=== PATIENT | male | born 1970 | race African-American/Black ===

== ENCOUNTER 2017-05-02 13:51 | Emergency (ER) | payer OTHER ==
[2017-05-02 14:29] LABS: ADD MAN DIFF? NO
[2017-05-02 14:31] LABS: BASO % 1 % (0-3); EOS # 0.1 x10^3/uL (0.0-0.7); EOS % 2 % (0-3); HEMATOCRIT 41.9 % (39.0-53.0); HEMOGLOBIN 14.4 g/dL (13.0-17.5); LYMPH # 1.4 x10^3/uL (1.0-4.8); LYMPH % 33 % (24-48); MEAN CORPUSCULAR HEMOGLOBIN 30 pg (25-35); MEAN CORPUSCULAR HGB CONC 34 g/dL (31-37); MEAN CORPUSCULAR VOLUME 86 fL (79-100); MONO # 0.3 x10^3/uL (0.0-1.1); MONO % 8 % (0-9); NEUT # 2.3 x10^3uL (1.8-7.7); NEUT % 55 % (31-73); PLATELET COUNT 236 x10^3/uL (140-400); RED BLOOD COUNT 4.89 x10^6/uL (4.30-5.70); RED CELL DISTRIBUTION WIDTH 13.1 % (11.5-14.5); WHITE BLOOD COUNT 4.1 x10^3/uL (4.0-11.0)
[2017-05-02 14:42] LABS: ANION GAP 7 (6-14); BLOOD UREA NITROGEN 15 mg/dL (8-26); BUN/CREATININE RATIO 11 (6-20); CALCIUM 8.9 mg/dL (8.5-10.1); CARBON DIOXIDE 29 mmol/L (21-32); CHLORIDE 105 mmol/L (98-107); CREATININE 1.4 mg/dL (0.7-1.3); GLUCOSE 107 mg/dL (70-99); POTASSIUM 3.8 mmol/L (3.5-5.1); SODIUM 141 mmol/L (136-145)
[2017-05-02 14:47] LABS: PARTIAL THROMBOPLASTIN TIME 22 SEC (24-38); PROTHROMBIN TIME PATIENT 12.7 SEC (11.7-14.0)
[2017-05-02 14:50] LABS: ALBUMIN 3.6 g/dL (3.4-5.0); ALK PHOS 73 U/L (46-116); ALT (SGPT) 31 U/L (16-63); AST (SGOT) 16 U/L (15-37); TOTAL BILIRUBIN 0.3 mg/dL (0.2-1.0); TOTAL PROTEIN 7.1 g/dL (6.4-8.2)
[2017-05-02 14:50] LABS: TROPONINI < 0.017 ng/mL (0.000-0.055)
[2017-05-02 14:53] LABS: NT-PRO BNP 9 pg/mL (0-124)
[2017-05-02] MEDS: MORPHINE SULFATE 4 MG/ML DISP.SYRIN. IV/SQ (15:02)
[2017-05-02] MEDS: ASPIRIN 325 MG TABLET PO (15:02)
[2017-05-02 17:11] LABS: TROPONINI < 0.017 ng/mL (0.000-0.055)
== END 2017-05-02 18:08 | disposition home or self-care (01) ==
LOC: ER 13:51
DX: R07.89 Other chest pain (principal); I10 Essential (primary) hypertension; J45.909 Unspecified asthma, uncomplicated; E78.00 Pure hypercholesterolemia, unspecified; F12.10 Cannabis abuse, uncomplicated; I25.2 Old myocardial infarction; Z88.0 Allergy status to penicillin
CPT/HCPCS: 36415; 71046; 80053; 83880; 84484; 85025; 85610; 85730; 93005; 96374; 99285-25; J2270

== ENCOUNTER 2017-08-13 03:08 | Emergency (ER) | payer OTHER ==
[2017-08-13 03:42] LABS: BILIRUBIN,URINE NEGATIVE (NEG); CLARITY,URINE CLOUDY; COLOR,URINE YELLOW; GLUCOSE,URINE NEGATIVE (NEG); NITRITE,URINE NEGATIVE (NEG); PH,URINE 7.5; PROTEIN,URINE NEGATIVE (NEG-TRACE); UROBILINOGEN,URINE 0.2 mg/dL (0.2 mg/dL)
[2017-08-13 03:58] LABS: BACTERIA,URINE 0 /HPF (0-FEW); RBC,URINE OCC /HPF (0-2); WBC,URINE OCC /HPF (0-4)
[2017-08-13 04:15] LABS: ADD MAN DIFF? NO
[2017-08-13] MEDS: MORPHINE SULFATE 4 MG/ML DISP.SYRIN. IV (04:18)
[2017-08-13] MEDS: IV NORMAL SALINE 1000ML BAG 1,000 ML IV (04:18)
[2017-08-13 04:19] LABS: BASO % 0 % (0-3); EOS # 0.1 x10^3/uL (0.0-0.7); EOS % 2 % (0-3); HEMATOCRIT 39.7 % (39.0-53.0); HEMOGLOBIN 13.8 g/dL (13.0-17.5); LYMPH # 1.8 x10^3/uL (1.0-4.8); LYMPH % 38 % (24-48); MEAN CORPUSCULAR HEMOGLOBIN 30 pg (25-35); MEAN CORPUSCULAR HGB CONC 35 g/dL (31-37); MEAN CORPUSCULAR VOLUME 86 fL (79-100); MONO # 0.4 x10^3/uL (0.0-1.1); MONO % 8 % (0-9); NEUT # 2.4 x10^3uL (1.8-7.7); NEUT % 51 % (31-73); PLATELET COUNT 230 x10^3/uL (140-400); RED CELL DISTRIBUTION WIDTH 13.5 % (11.5-14.5); WHITE BLOOD COUNT 4.6 x10^3/uL (4.0-11.0)
[2017-08-13 04:30] LABS: ANION GAP 8 (6-14); BLOOD UREA NITROGEN 17 mg/dL (8-26); CALCIUM 8.2 mg/dL (8.5-10.1); CARBON DIOXIDE 27 mmol/L (21-32); CHLORIDE 103 mmol/L (98-107); CREATININE 1.4 mg/dL (0.7-1.3); GLUCOSE 108 mg/dL (70-99); POTASSIUM 3.3 mmol/L (3.5-5.1); SODIUM 138 mmol/L (136-145)
[2017-08-13] MEDS: IOHEXOL 300 MG/ML 100ML VIAL. IV (04:51)
[2017-08-13] MEDS ORDERED: CONTRAST GIVEN. MC (05:00)
== END 2017-08-13 06:22 | disposition home or self-care (01) ==
LOC: ER 03:08
DX: R10.32 Left lower quadrant pain (principal); R31.9 Hematuria, unspecified; J45.909 Unspecified asthma, uncomplicated; E78.00 Pure hypercholesterolemia, unspecified; I10 Essential (primary) hypertension; I25.2 Old myocardial infarction; Z88.0 Allergy status to penicillin
CPT/HCPCS: 36415; 74177; 80048; 81001; 85025; 96374; 99284-25; 99285-25; J2270; J7030; Q9967

== ENCOUNTER 2017-09-15 06:28 | Emergency (ER) | payer OTHER ==
[2017-09-15 06:49] LABS: ADD MAN DIFF? NO
[2017-09-15 06:51] LABS: BASO % 1 % (0-3); EOS # 0.1 x10^3/uL (0.0-0.7); EOS % 2 % (0-3); HEMATOCRIT 41.5 % (39.0-53.0); HEMOGLOBIN 14.2 g/dL (13.0-17.5); LYMPH # 1.9 x10^3/uL (1.0-4.8); LYMPH % 39 % (24-48); MEAN CORPUSCULAR HEMOGLOBIN 30 pg (25-35); MEAN CORPUSCULAR HGB CONC 34 g/dL (31-37); MEAN CORPUSCULAR VOLUME 87 fL (79-100); MONO # 0.5 x10^3/uL (0.0-1.1); MONO % 11 % (0-9); NEUT # 2.2 x10^3uL (1.8-7.7); NEUT % 48 % (31-73); PLATELET COUNT 235 x10^3/uL (140-400); RED CELL DISTRIBUTION WIDTH 13.7 % (11.5-14.5); WHITE BLOOD COUNT 4.7 x10^3/uL (4.0-11.0)
[2017-09-15] MEDS: ASPIRIN ENTERIC COATED 325 MG TABLET.DR. PO (06:53)
[2017-09-15] MEDS: LIDO:MAALOX 1:1 20 ML SINGLE DOSE. SWSW (06:53)
[2017-09-15 07:03] LABS: ANION GAP 10 (6-14); BLOOD UREA NITROGEN 14 mg/dL (8-26); CALCIUM 8.9 mg/dL (8.5-10.1); CARBON DIOXIDE 27 mmol/L (21-32); CHLORIDE 104 mmol/L (98-107); CREATININE 1.4 mg/dL (0.7-1.3); GLUCOSE 108 mg/dL (70-99); POTASSIUM 4.1 mmol/L (3.5-5.1); SODIUM 141 mmol/L (136-145)
[2017-09-15 07:13] LABS: TROPONINI < 0.017 ng/mL (0.000-0.055)
[2017-09-15] MEDS: IV NORMAL SALINE 1000ML BAG 1,000 ML IV (07:51)
[2017-09-15] MEDS ORDERED: IV NORMAL SALINE 1000ML BAG 1,000 ML IV ×2 (08:00→08:30)
== END 2017-09-15 08:57 | disposition home or self-care (01) ==
LOC: ER 06:28
DX: R07.89 Other chest pain (principal); R00.2 Palpitations; K21.9 Gastro-esophageal reflux disease without esophagitis; J45.909 Unspecified asthma, uncomplicated; I10 Essential (primary) hypertension; E78.00 Pure hypercholesterolemia, unspecified; Z88.0 Allergy status to penicillin
CPT/HCPCS: 36415; 71045; 80048; 84484; 85025; 93005; 99285-25; J7030

== ENCOUNTER 2018-02-28 06:03 | Emergency (ER) | payer OTHER ==
[~2018-02-28] VITALS: Ht 172.7 cm; Wt 95.3 kg
[~2018-02-28 06:03] MED LIST: HYDR-3164 PO; IBUP-1060 PO
--- NOTE | 2018-02-28 06:20 | PHYS DOC ---
Past Medical History Past Medical History: Asthma, High Cholesterol, Hypertension Additional Past Medical Histor: MILD [place] Past Surgical History: Other Additional Past Surgical Histo: LIPOMA REMOVAL Alcohol Use: None Drug Use: None Adult General Chief Complaint Chief Complaint: ABDOMINAL PAIN HPI HPI Patient is a 47 year old male who presents with chest pain. Patient endorses a prior history of reflux. He states the symptoms feel similar to his reflux. He has been evaluated by his primary care doctor and is also scheduled to undergo stress testing in the next couple of weeks. Patient is treated with Carafate and some proton pump inhibitor medications at home. He woke this morning with onset of epigastric pain that he states radiates to his chest intermittently. He did not eat food prior to onset of symptoms. He has no shortness of breath. No radiation to the arm or jaw. No recent fever, chills, cough. Patient does not have known history of coronary artery disease but he does take medications for high cholesterol and high blood pressure. He has tobacco use. He does not have diabetes. Review of Systems Review of Systems Constitutional: Denies fever or chills Eyes: Denies change in visual acuity HENT: Denies nasal congestion or sore throat Respiratory: Denies cough or shortness of breath Cardiovascular: No additional information not addressed in HPI GI: Denies abdominal pain, nausea : Denies dysuria or hematuria Musculoskeletal: Denies back pain Integument: Denies rash or skin lesions Neurologic: Denies headache Endocrine: Denies polyuria All other systems were reviewed and found to be within normal limits, except as documented in this note. Current Medications Current Medications Current Medications Medications (Trade) Dose Ordered Sig/Luz Start Time Stop Time Status Last Admin Dose Admin Amlodipine Besylate (Norvasc) 10 mg 1X ONCE 02/28/18 07:00 02/28/18 07:01 DC 02/28/18 06:33 10 MG Famotidine (Pepcid Vial) 20 mg 1X ONCE 02/28/18 07:00 02/28/18 07:01 DC 02/28/18 06:30 20 MG Multi-Ingredient Mouthwash/Gargle (Gi Cocktail) 20 ml 1X ONCE 02/28/18 07:00 02/28/18 07:01 DC 02/28/18 06:30 20 ML Allergies Allergies Allergies Coded Allergies Type Severity Reaction Last Updated Verified Penicillins Allergy Intermediate rash 09/15/17 Yes Physical Exam Physical Exam Constitutional: Well developed, well nourished, no acute distress, non-toxic appearance HENT: Normocephalic, atraumatic, bilateral external ears normal, oropharynx moist Eyes: PERRLA, EOMI, conjunctiva normal Neck: Normal range of motion, no tenderness Cardiovascular:Heart rate regular rhythm, no murmur Lungs & Thorax: Bilateral breath sounds clear to auscultation Abdomen: Bowel sounds normal, soft, no tenderness Skin: Warm, dry, no erythema Extremities: No edema Neurologic: Alert and oriented X 3 Psychologic: Affect normal Current Patient Data Vital Signs Vital Signs Date Time Temp Pulse Resp B/P (MAP) Pulse Ox O2 Delivery O2 Flow Rate FiO2 02/28/18 10:04 65 18 145/95 (112) 98 Room Air 02/28/18 06:10 98.8 98.8 Lab Values Laboratory Tests Test 02/28/18 06:28 02/28/18 07:09 02/28/18 09:30 White Blood Count 3.9 x10^3/uL (4.0-11.0) L Red Blood Count 4.66 x10^6/uL (4.30-5.70) Hemoglobin 14.0 g/dL (13.0-17.5) Hematocrit 40.5 % (39.0-53.0) Mean Corpuscular Volume 87 fL (79-100) Mean Corpuscular Hemoglobin 30 pg (25-35) Mean Corpuscular Hemoglobin Concent 35 g/dL (31-37) Red Cell Distribution Width 13.1 % (11.5-14.5) Platelet Count 198 x10^3/uL (140-400) Neutrophils (%) (Auto) 53 % (31-73) Lymphocytes (%) (Auto) 34 % (24-48) Monocytes (%) (Auto) 9 % (0-9) Eosinophils (%) (Auto) 4 % (0-3) H Basophils (%) (Auto) 1 % (0-3) Neutrophils # (Auto) 2.0 x10^3uL (1.8-7.7) Lymphocytes # (Auto) 1.3 x10^3/uL (1.0-4.8) Monocytes # (Auto) 0.3 x10^3/uL (0.0-1.1) Eosinophils # (Auto) 0.1 x10^3/uL (0.0-0.7) Basophils # (Auto) 0.0 x10^3/uL (0.0-0.2) Sodium Level 141 mmol/L (136-145) Potassium Level 4.0 mmol/L (3.5-5.1) Chloride Level 105 mmol/L (98-107) Carbon Dioxide Level 28 mmol/L (21-32) Anion Gap 8 (6-14) Blood Urea Nitrogen 16 mg/dL (8-26) Creatinine 1.5 mg/dL (0.7-1.3) H Estimated GFR (Cockcroft-Gault) 60.7 Glucose Level 110 mg/dL (70-99) H Calcium Level 8.8 mg/dL (8.5-10.1) Troponin I Quantitative < 0.017 ng/mL (0.000-0.055) < 0.017 ng/mL (0.000-0.055) HD-Usq-M-Type Natriuretic Peptide 8 pg/mL (0-124) Urine Collection Type Unknown Urine Color Yellow Urine Clarity Clear Urine pH 6.5 Urine Specific [place] 1.020 Urine Protein Negative mg/dL (NEG-TRACE) Urine Glucose (UA) Negative mg/dL (NEG) Urine Ketones (Stick) Negative mg/dL (NEG) Urine Blood Negative (NEG) Urine Nitrite Negative (NEG) Urine Bilirubin Negative (NEG) Urine Urobilinogen Dipstick 0.2 mg/dL (0.2 mg/dL) Urine Leukocyte Esterase Negative (NEG) Urine RBC Occ /HPF (0-2) Urine WBC 1-4 /HPF (0-4) Urine Squamous Epithelial Cells Few /LPF Urine Bacteria Few /HPF (0-FEW) Urine Mucus Mod /LPF Laboratory Tests 02/28/18 06:28 Laboratory Tests 02/28/18 06:28 EKG EKG No STEMI Interpretation Time: 06:15 Radiology/Procedures Radiology/Procedures [] Course & Med Decision Making Course & Med Decision Making Pertinent Labs and Imaging studies reviewed. (See chart for details) 06:15: Patient is seen and examined. GI cocktail and Pepcid ordered. EKG is non-acute. HEART Score: History: 0 EC Age: 1 Risk Factors: 2 (tobacco, HTN, HLD, fam hx) Total Score: 3 07:40: Patient currently improved. BP trending downward. No acute findings on lab panel. Heart score 3. Plan is to do 3-hr delta trop in ER. Patient is agreeable. Patient was evaluated in the emergency department for some chest pain which she states felt very typical for his reflux symptoms. Heart score totaled 3. Patient felt improved after GI cocktail and IV Pepcid. Patient was observed in the emergency department for a 3 hour delta troponin which was not elevated. His EKG was nonacute also at the 3 hour interval. Patient was discharged to home. He already has cardiology follow-up pending. Patient also is referred to GI for evaluation of chronic GERD symptoms that are poorly controlled on PPI therapy. Patient is agreeable to the plan of care. All of his questions are answered. Dragon Disclaimer Dragon Disclaimer This electronic medical record was generated, in whole or in part, using a voice recognition dictation system. Departure Departure Disposition: 01 HOME, SELF-CARE Condition: GOOD Referrals: NGA PADILLA MD (PCP) COBY MACHADO DO Feb 28, 2018 06:20
[2018-02-28 06:39] LABS: BASO % 1 % (0-3); EOS # 0.1 x10^3/uL (0.0-0.7); EOS % 4 % (0-3); HEMATOCRIT 40.5 % (39.0-53.0); LYMPH # 1.3 x10^3/uL (1.0-4.8); LYMPH % 34 % (24-48); MEAN CORPUSCULAR HEMOGLOBIN 30 pg (25-35); MEAN CORPUSCULAR HGB CONC 35 g/dL (31-37); MEAN CORPUSCULAR VOLUME 87 fL (79-100); MONO # 0.3 x10^3/uL (0.0-1.1); MONO % 9 % (0-9); NEUT % 53 % (31-73); PLATELET COUNT 198 x10^3/uL (140-400); RED BLOOD COUNT 4.66 x10^6/uL (4.30-5.70); RED CELL DISTRIBUTION WIDTH 13.1 % (11.5-14.5); WHITE BLOOD COUNT 3.9 x10^3/uL (4.0-11.0)
[2018-02-28 06:50] LABS: CALCIUM 8.8 mg/dL (8.5-10.1); CREATININE 1.5 mg/dL (0.7-1.3); GFR 60.7
[2018-02-28] MEDS ORDERED: amLODIPine BESYLATE 5 MG TABLET PO ONE (07:00)
[2018-02-28] MEDS ORDERED: FAMOTIDINE 20 MG/2 ML VIAL IVP ONE (07:00)
[2018-02-28] MEDS ORDERED: LIDO:MAALOX 1:1 20 ML SINGLE DOSE. SWSW ONE (07:00)
[2018-02-28 07:21] LABS: BILIRUBIN,URINE NEGATIVE (NEG); CLARITY,URINE CLEAR; COLOR,URINE YELLOW; NITRITE,URINE NEGATIVE (NEG); PH,URINE 6.5; PROTEIN,URINE NEGATIVE (NEG-TRACE); UROBILINOGEN,URINE 0.2 mg/dL (0.2 mg/dL)
[2018-02-28 07:26] LABS: SQUAMOUS EPITHELIAL CELL,UR FEW /LPF
[2018-02-28 07:27] LABS: BACTERIA,URINE FEW /HPF (0-FEW); RBC,URINE OCC /HPF (0-2)
[2018-02-28 10:04] VITALS: BP 145/95
--- NOTE | 2018-02-28 12:02 | EKG ---
[facility] [address] [place] [address] Test Date: 2018-02-28 Test Time: 06:12:54 Pat Name: JOVANNY BROWNING Department: Room: Gender: Male Band Top Maker: : 1970 Requested By: COBY MACHADO Order Number: [id number] Reading MD: Mark Oh Measurements Intervals [place]nel[place] Rate: 80 P: 47 MS: 140 QRS: -22 QRSD: 102 T: 7 QT: 374 QTc: 435 Interpretive Statements SINUS RHYTHM LEFTWARD AXIS LEFT VENTRICULAR HYPERTROPHY Electronically Signed On 03-11-2018 14:50:28 WEATHER TEACHER by Mark Oh
--- NOTE | 2018-02-28 14:57 | EKG ---
[facility] [address] [place] [address] Test Date: 2018-02-28 Test Time: 10:00:17 Pat Name: JOVANNY BROWNING Department: Room: Gender: M Location Man: : 1970 Requested By: COBY MACHADO Order Number: [id number] Reading MD: Mark Oh Measurements Intervals [place] Rate: 59 P: 30 WI: 138 QRS: -21 QRSD: 100 T: -5 QT: 412 QTc: 408 Interpretive Statements SINUS RHYTHM LEFTWARD AXIS CONSIDER LEFT VENTRICULAR HYPERTROPHY T ABNORMALITY IN INFERIOR LEADS ABNORMAL ECG Electronically Signed On 03-11-2018 16:47:53 PULP PRESS TENDER by Mark Oh
== END 2018-02-28 10:38 | disposition home or self-care (01) ==
LOC: ER 06:03
DX: R07.89 Other chest pain (principal); E78.00 Pure hypercholesterolemia, unspecified; J45.909 Unspecified asthma, uncomplicated; I10 Essential (primary) hypertension; I25.2 Old myocardial infarction; K21.9 Gastro-esophageal reflux disease without esophagitis; Z72.0 Tobacco use; Z88.0 Allergy status to penicillin
CPT/HCPCS: 36415; 80048; 81001; 83880; 84484; 85025; 93005; 96374; 99284; J3490

== ENCOUNTER → 2018-04-03 | Outpatient (CLI) | payer OTHER ==
--- NOTE | 2018-04-03 14:43 | CARD ---
MR#: [id number] Date of Study: 04/03/2018 Ordering Physician: YOON ANDRE, Referring Physician: YOON ANDRE, Tech: Pamela Stevenson CS APPROVED REPORT INDICATION Chest Pain RISK FACTORS Hypertension Smoking Reason : Patient complained of pain PROCEDURE The patient underwent an Exercise Stress Test using the Jonatan Protocol. Blood pressure, heart rate, a nd EKG were monitored. An Echocardiogram was performed by swimming pool service technician in four stages in quad fashion. At peak stress four se lected images were obtained and placed side by side with resting images for comparison. STRESS ECHO FINDINGS The resting Echocardiogram showed normal left ventricular systolic contractility with an estimated Ej ection Fraction of about 60 %. The Resting Echocardiogram showed normal augmentation of myocardial wall segments using a 16 segment model. The Stress Echocardiogram showed normal augmentation of myocardial wall segments using a 16 segment m johan. The Stress Echocardiogram left ventricular systolic contractility has an estimated Ejection Fraction of about 75%. Test Type: Exercise Stress Nurse/Tech: Lili Adan R.N. Test Indications: c/p Cardiac History and Allergies: See EHR Medications: See EHR Medical History: see EHR Resting ECG: SR Resting Heart Rate: 65 bpm Resting Blood Pressure: 158/80mmHg Pretest Chest Pain: No chest pain Nurse/Tech Notes S1S2, lungs CTA Stress Symptoms chest pain left side scale 4/10 which resolved by end of recovery period, fatigue POST EXERCISE Reason for Termination: Reached target heart rate Target HR: Yes Max HR: 156 bpm 90% of Maximum Predicted HR: 173 bpm Exercise duration: 9:03 min:sec, 3 Stage Exercise capacity: 10.1METs Max Blood Pressure: 210/102mmHg Blood Pressure response to exercise: Normal blood pressure response during stress. Heart Rate response to exercise: wnl Chest Pain: Yes. see above note Arrhythmia: No. ST Change: No. INTERPRETATION Stress EKG Conclusion: Baseline EKG showed sinus rhythm. No ischemic changes at peak stress. No arr hythmias. Preliminary Notification Critical Value: No <Conclusion> Treadmill exercise stress echocardiogram did not show any evidence of ischemia or infarct. Normal left ventricle systolic function with ejection fraction estimated at 60%. Patient had good activity tolerance. Low risk for cardiac events. Signed by : Mark Oh, Electronically Approved : 04/03/2018 14:43:06
== END | disposition home or self-care (01) ==
LOC: ECHO 12:17
PROVIDERS: ATTEND Internal Medicine Cardiovascular Disease
DX: R07.9 Chest pain, unspecified (principal); R53.83 Other fatigue; I10 Essential (primary) hypertension; F17.210 Nicotine dependence, cigarettes, uncomplicated
CPT/HCPCS: 93017; 93350

== ENCOUNTER → 2018-07-20 | Outpatient (CLI) | payer OTHER ==
--- NOTE | 2018-07-20 17:39 | KCIC ---
CHEST PA LATERAL History: Chronic smoker, quit 1 month ago. Night sweats for 2 months. FINDINGS: There are low lung volumes. Cardiac silhouette is stable and not thought to be enlarged. No evidence of pneumothorax. No evidence of pleural effusion. No solid infiltrate. Bones appear intact. Thoracic scoliosis again seen. IMPRESSION: Low lung volumes, but no evidence of consolidating infiltrate. Electronically signed by: Chencho Oreilly MD (07/20/2018 5:36 PM) [facility]-KC[facility]
== END | disposition home or self-care (01) ==
LOC: KCIC 15:54
PROVIDERS: ATTEND Family Medicine
DX: M41.84 Other forms of scoliosis, thoracic region (principal); Z87.891 Personal history of nicotine dependence
CPT/HCPCS: 71046

== ENCOUNTER 2019-05-01 04:18 | Emergency (ER) | payer OTHER ==
[~2019-05-01] VITALS: Ht 172.7 cm; Wt 100.0 kg
[2019-05-01 05:10] VITALS: BP 170/92
--- NOTE | 2019-05-01 05:22 | PHYS DOC ---
Past Medical History Past Medical History: Asthma, GERD, High Cholesterol, Hypertension Additional Past Medical Histor: MILD [place] Past Surgical History: Other Additional Past Surgical Histo: LIPOMA REMOVAL Smoking Status: Current Every Day Smoker Alcohol Use: None Drug Use: None Adult General Chief Complaint Chief Complaint: SEXUALLY TRANSMITTED DISEASE HPI HPI 48-year-old male presents the emergency department complaints of skin irritation to his penis. Patient states he noticed a couple days ago a white dot on the s haft of his penis however that has subsequently resolved. He now has some itching. Patient states he was concerned he may have inflammation or infection or possible bite. Patient denies any fever recent sexual contact, denies any discharge. Nothing makes his symptoms worse, nothing makes his symptoms better. Patient denies any abdominal pain, nausea, vomiting, fever, discharge Review of Systems Review of Systems Constitutional: Denies fever or chills [] Cardiovascular: No additional information not addressed in HPI [] GI: Denies abdominal pain, nausea, vomiting, bloody stools or diarrhea [] Integument: skin irritation appreciated to shaft of penis Neurologic: Denies headache, focal weakness or sensory changes [] All other systems were reviewed and found to be within normal limits, except as documented in this note. Allergies Allergies Allergies Coded Allergies Type Severity Reaction Last Updated Verified Penicillins Allergy Intermediate rash 09/15/17 Yes Physical Exam Physical Exam Constitutional: Well developed, well nourished, no acute distress, non-toxic appearance. [] HENT: Normocephalic, atraumatic, bilateral external ears normal, oropharynx moist, no oral exudates, nose normal. [] Skin: Warm, dry, erythema appreciated to shaft of penis - no active vesicular lesion appreciated, no drainage Extremities: No tenderness, no edema. [] EKG EKG [] Radiology/Procedures Radiology/Procedures [] Course & Med Decision Making Course & Med Decision Making Pertinent Labs and Imaging studies reviewed. (See chart for details) []48-year-old male presents the emergency department complaints of skin irritati on to his penis. Patient states he noticed a couple days ago a white dot on the shaft of his penis however that has subsequently resolved. He now has some itching. Patient states he was concerned he may have inflammation or infection or possible bite. Patient denies any fever recent sexual contact, denies any discharge. Nothing makes his symptoms worse, nothing makes his symptoms better. Patient denies any abdominal pain, nausea, vomiting, fever, discharge Dragon Disclaimer Dragon Disclaimer This electronic medical record was generated, in whole or in part, using a voice recognition dictation system. Departure Departure Impression: Primary Impression: Skin irritation Disposition: HOME, SELF-CARE Condition: STABLE Referrals: DIANA ARREGUIN MD (PCP) Patient Instructions: Itching-Brief Additional Instructions: No evidence of STD/STI No cellulitis/infection appreciated Benadryl over the counter Vaseline can be used as a barrier cream BEATRIZ MAYNARD MD May 01, 2019 05:22
== END 2019-05-01 05:40 | disposition home or self-care (01) ==
LOC: ER 04:18
DX: N48.89 Other specified disorders of penis (principal); L29.8 Other pruritus; J45.909 Unspecified asthma, uncomplicated; K21.9 Gastro-esophageal reflux disease without esophagitis; I10 Essential (primary) hypertension; E78.00 Pure hypercholesterolemia, unspecified; I25.2 Old myocardial infarction; F17.200 Nicotine dependence, unspecified, uncomplicated; Z88.0 Allergy status to penicillin
CPT/HCPCS: 99281

== ENCOUNTER → 2019-08-17 | Outpatient (CLI) | payer OTHER ==
[~2019-08-17] MED LIST changes: +AMLO10TA8 PO; +ATOR80TA72 PO; +IOHEXOL 240 MG/ML 50ML VIAL. PO ONE; +IOHEXOL 300 MG/ML 100ML VIAL. IV ONE; +PANT20TA2 PO
--- NOTE | 2019-08-17 14:27 | KCIC ---
CT scan of the abdomen and pelvis with contrast 08/17/2019 CLINICAL HISTORY: Abdominal fullness without epigastric pain. TECHNIQUE: After the oral and intravenous administration of contrast, contiguous, 5 mm axial sections were obtained through the abdomen and pelvis. 100 cc of Omnipaque 300 were administered intravenously during this examination. One or more of the following individualized dose reduction techniques were utilized for this study: 1. Automated exposure control. 2. Adjustment of the mA and/or kV according to patient size. 3. Use of iterative reconstruction technique. FINDINGS: Comparison study is dated 08/13/2017. Images through the lung bases are within normal limits. The liver parenchyma has a decreased attenuation consistent with fatty infiltration. The spleen, pancreas, adrenal glands and kidneys are within normal limits. Atherosclerotic calcification of the abdominal aorta is seen. The abdominal aorta tapers normally. The gallbladder is slightly contracted. No free fluid or free air is seen within the abdomen. Air and stool are seen throughout the colon. The appendix is well-visualized and is within normal limits. Images through the pelvis demonstrate the urinary bladder distended with urine. Scattered diverticula are seen involving the sigmoid colon. No inflammatory changes are seen in the adjacent fat. No free fluid is noted. A small fat-containing left inguinal hernia is seen. The hernia sac measures 3.6 cm in size. Very mild S-shaped curvature of the thoracolumbar spine is seen. Degenerative changes are seen involving the lower thoracic and throughout the lumbar spine along with both hips. IMPRESSION: No acute abnormality is seen. Electronically signed by: Reji Hall MD (08/17/2019 2:24 PM) [id number]
== END ==
LOC: KCIC CT 08:13
PROVIDERS: ATTEND Surgery
DX: K40.90 Unilateral inguinal hernia, without obstruction or gangrene, not specified as recurrent (principal); K57.30 Diverticulosis of large intestine without perforation or abscess without bleeding; I70.0 Atherosclerosis of aorta; K82.0 Obstruction of gallbladder
CPT/HCPCS: 74177; Q9966; Q9967

== ENCOUNTER → 2019-09-20 | Outpatient (CLI) | payer OTHER ==
[~2019-09-20] MED LIST changes: -AMLO10TA8 PO; -ATOR80TA72 PO; -IOHEXOL 240 MG/ML 50ML VIAL. PO ONE; -IOHEXOL 300 MG/ML 100ML VIAL. IV ONE; -PANT20TA2 PO
== END | disposition home or self-care (01) ==
LOC: LAB 13:18
PROVIDERS: ATTEND Surgery
DX: Z01.818 Encounter for other preprocedural examination (principal); Z11.59 Encounter for screening for other viral diseases; R10.13 Epigastric pain; Z88.0 Allergy status to penicillin
CPT/HCPCS: U0003-CS

== ENCOUNTER → 2019-09-24 | Day surgery (SDC) | payer OTHER ==
[~2019-09-24] MED LIST changes: +AMLO10TA8 PO; +ATOR80TA72 PO; +IV RINGERS,LACTATED 1000ML 1,000 ML IV SCH; +LIDOCAINE 2% PF 5 ML VIAL. ONE; +PANT20TA2 PO; +PROPOFOL 10 MG/ML (20ML) VIAL. IV ONE
[2019-09-24 13:16] VITALS: BP 141/99
--- NOTE | 2019-09-27 16:06 | PATHOLOGY ---
[facility] Accession Number: [id number] . 01 Material submitted: . stomach - ANTRUM BIOPSY . 01 Clinical history: . Epigastric pain. . 02 Diagnosis: Gastric biopsy, antrum: - Active chronic gastritis, moderate to marked, with Helicobacter organisms identified. (JPM:joel; 09/27/2019) S 09/27/2019 0941 Local . 02 Comment: Sections of the gastric antral biopy show congestion and moderate to marked active chronic inflammation. A properly controlled immunoperoxidase stain for Helicobacter reveals numerous Helicobacter organisms. There is no evidence of malignancy. (JPM:joel; 09/27/2019) . 02 Electronically signed: . Kvng Reza MD, Pathologist NPI- [id number] . 01 Gross description: . Received in formalin labeled "Leo, Gil, antrum BX" is a 0.6 x 0.4 x 0.1 cm fragment of robles-brown soft tissue. The specimen is submitted entirely in A1. ([facility] [place] 09/26/2019) [facility] 09/27/2019 0939 Local . 02 Pathologist provided ICD-10: K29.50 . 02 CPT . 408848, [id number] Specimen Comment: A courtesy copy of this report has been sent to [phone], [phone] Specimen Comment: 1910 Specimen Comment: Report sent to / DR ARREGUIN Performed at: 01 [facility] [address], [place] [id number] MD Zeus Whyte MD Phone: [phone] Performed at: 02 [facility] [address], [place] [id number] MD Kvng Reza MD Phone: [phone]
--- NOTE | 2019-09-30 09:01 | PDOC1 ---
History and Physical Date of Admission Date of Admission DATE: 09/24/19 TIME: 08:58 Identification/Chief Complaint Chief Complaint Epigastric pain Source Source: Patient History of Present Illness History of Present Illness 48-year-old male with epigastric pain here for endoscopy Past Medical History Cardiovascular: No pertinent hx Pulmonary: No pertinent hx GI: No pertinent hx Heme/Onc: No pertinent hx Psych: No pertinent hx Rheumatologic: No pertinent hx Infectious disease: No pertinent hx ENT: No pertinent hx Renal/: No pertinent hx Past Surgical History Past Surgical History: No pertinent history Family History Family History: No Significant Social History Smoke: No ALCOHOL: none Drugs: None Current Medications Current Medications Current Medications Ringer's Solution 1,000 ml @ 50 mls/hr Q20H IV Last administered on 09/24/19at 12:23; Start 09/24/19 at 07:00; Stop 09/24/19 at 18:59; Status DC Propofol (Diprivan) 200 mg STK-MED ONCE IV ; Start 09/24/19 at 12:42; Stop 09/24/19 at 12:43; Status DC Lidocaine HCl (Lidocaine Pf 2% Vial) 5 ml STK-MED ONCE .ROUTE ; Start 09/24/19 at 12:42; Stop 09/24/19 at 12:43; Status DC Active Scripts Active Reported Atorvastatin Calcium 80 Mg Tablet 10 Mg PO DAILY Protonix (Pantoprazole Sodium) 20 Mg Tablet.dr 40 Mg PO DAILY Amlodipine Besylate 10 Mg Tablet 10 Mg PO DAILY Allergies Allergies: Coded Allergies: Penicillins (Verified Allergy, Intermediate, rash, 09/24/19) ROS Gastrointestinal: Yes Abdominal Pain Physical Exam General: Alert, Oriented X3, Cooperative, No acute distress HEENT: Atraumatic, EOMI Lungs: Clear to auscultation, Normal air movement Heart: RRR, no murmurs Abdomen: Normal bowel sounds, Soft, Other (Tender to palpation epigastrium) Rectal Exam: not examined Extremities: No edema Skin: No significant lesion Vitals Vitals Vital Signs Date Time Temp Pulse Resp B/P (MAP) Pulse Ox O2 Delivery O2 Flow Rate FiO2 09/24/19 13:16 72 20 141/99 99 Room Air 09/24/19 12:58 97.8 3 97.8 VTE Prophylaxis Ordered VTE Prophylaxis Devices: No VTE Pharmacological Prophylaxi: No Assessment/Plan Assessment/Plan Epigastric pain plan EGD Justicifation of Admission Dx: Justifications for Admission: Justification of Admission Dx: N/A SARAI OROURKE MD Sep 30, 2019 09:01
== END | disposition home or self-care (01) ==
LOC: ENDOS 11:30
PROVIDERS: ATTEND Surgery
DX: R10.13 Epigastric pain (principal); K29.50 Unspecified chronic gastritis without bleeding; B96.81 Helicobacter pylori [H. pylori] as the cause of diseases classified elsewhere; I10 Essential (primary) hypertension; F17.210 Nicotine dependence, cigarettes, uncomplicated; K21.9 Gastro-esophageal reflux disease without esophagitis; Z79.899 Other long term (current) drug therapy; Z98.890 Other specified postprocedural states; Z88.0 Allergy status to penicillin
CPT/HCPCS: 43239; 88305; 88342; J2704

== ENCOUNTER 2020-09-22 08:55 | Emergency (ER) | payer OTHER ==
[~2020-09-22] VITALS: Ht 170.2 cm; Wt 95.0 kg
[~2020-09-22 08:55] MED LIST changes: +AMLO-187 PO; -AMLO10TA8 PO; -IV RINGERS,LACTATED 1000ML 1,000 ML IV SCH; -LIDOCAINE 2% PF 5 ML VIAL. ONE; -PROPOFOL 10 MG/ML (20ML) VIAL. IV ONE
[2020-09-22 09:10] VITALS: BP 153/97
[2020-09-22] MEDS ORDERED: MECLIZINE HCL 12.5 MG TABLET. PO ONE (10:00)
--- NOTE | 2020-09-22 11:35 | PHYS DOC ---
Past Medical History Past Medical History: Asthma, GERD, High Cholesterol, Hypertension Additional Past Medical Histor: "MILD AL" Past Surgical History: Other Additional Past Surgical Histo: LIPOMA REMOVAL Smoking Status: Current Every Day Smoker Additional Information: "I'm trying to stop." Alcohol Use: Occasionally Drug Use: None General Adult EDM: Chief Complaint: DIZZY/LIGHT HEADED HPI: HPI: Patient is a 49 year old male who presents with vertigo sensation starting this morning upon waking up. It goes away when he lays still or does not move his head. Gets worse when he moves his head. Will slowly settle out once he stops moving. He has never had similar symptoms in the past. He has had some fullness in his right ear. No speech difficulty, vision changes, weakness, numbness. Review of Systems: Review of Systems: Constitutional: Denies fever or chills. [] Eyes: Denies change in visual acuity. [] HENT: Denies nasal congestion or sore throat. [] Respiratory: Denies cough or shortness of breath. [] Cardiovascular: Denies chest pain or edema. [] GI: Denies abdominal pain, nausea, vomiting, bloody stools or diarrhea. [] : Denies dysuria. [] Musculoskeletal: Denies back pain or joint pain. [] Integument: Denies rash. [] Neurologic: + Vertigo. Denies headache, focal weakness or sensory changes. [] Endocrine: Denies polyuria or polydipsia. [] Lymphatic: Denies swollen glands. [] Psychiatric: Denies depression or anxiety. [] Heart Score: C/O Chest Pain: N/A Risk Factors: Risk Factors: DM, Current or recent (<one month) smoker, HTN, HLP, family history of CAD, obesity. Risk Scores: Score 0 - 3: 2.5% MACE over next 6 weeks - Discharge Home Score 4 - 6: 20.3% MACE over next 6 weeks - Admit for Clinical Observation Score 7 - 10: 72.7% MACE over next 6 weeks - Early Invasive Strategies Family History: Family History: No pertinent family history Current Medications: Current Medications Medications (Trade) Dose Ordered Sig/Luz Start Time Stop Time Status Last Admin Dose Admin Meclizine HCl (Antivert) 25 mg 1X ONCE 09/22/20 10:00 09/22/20 10:01 DC 09/22/20 10:25 25 MG Allergies: Allergies: Allergies Coded Allergies Type Severity Reaction Last Updated Verified Penicillins Allergy Intermediate rash 09/24/19 Yes Physical Exam: PE: Constitutional: Well developed, well nourished, no acute distress, non-toxic appearance. [] HENT: Normocephalic, atraumatic, bilateral external ears normal, oropharynx moist, no oral exudates, nose normal. [] Eyes: PERRLA, EOMI, conjunctiva normal, no discharge. [] Neck: Normal range of motion, no tenderness, supple, no stridor. [] Cardiovascular:Heart rate regular rhythm, no murmur [] Lungs & Thorax: Bilateral breath sounds clear to auscultation [] Abdomen: Bowel sounds normal, soft, no tenderness, no masses, no pulsatile masses. [] Skin: Warm, dry, no erythema, no rash. [] Back: No tenderness, no CVA tenderness. [] Extremities: No tenderness, no cyanosis, no clubbing, ROM intact, no edema. [] Neurologic: Alert, oriented. Speech normal. Face symmetric. Cranial nerves intact. 5/5 strength in bilateral upper and lower extremities. No dysmetria in the upper or lower extremities. Nystagmus with leftward gaze. Corrective saccade only present with a leftward head impulse testing. He demonstrated a normal test of skew. [] Psychologic: Affect normal, judgement normal, mood normal. [] Current Patient Data: Vital Signs: Vital Signs Date Time Temp Pulse Resp B/P (MAP) Pulse Ox O2 Delivery O2 Flow Rate FiO2 09/22/20 09:10 98.7 68 12 153/97 (113) 98 Room Air 98.7 EKG: EKG: Sinus rhythm. Rate 53. Left axis deviation. No acute ischemic changes. [] Radiology/Procedures: Radiology/Procedures: [] Course & Med Decision Making: Course & Med Decision Making Pertinent Labs and Imaging studies reviewed. (See chart for details) Patient a 49-year-old male who presents with positional vertigo. History and exam are consistent with peripheral vertigo, specifically BPPV. Positive [place]- Hallpike. Attempted Adilene with some mild relief. Also improved with Antivert. Will be safe for discharge with PCP follow-up. Short course of meclizine provided Dragon Disclaimer: Dragon Disclaimer: This electronic medical record was generated, in whole or in part, using a voice recognition dictation system. Departure Departure Impression: Primary Impression: BPPV (benign paroxysmal positional vertigo) Disposition: HOME / SELF CARE / HOMELESS Condition: STABLE Referrals: DIANA ARREGUIN MD (PCP) Patient Instructions: Benign Positional Vertigo Additional Instructions: I think your dizziness is caused by I have Crystal being out of place in your middle ear. You can google Adilene maneuver to get instructions for trying to reverse this if you have continued symptoms at home. Please follow-up with your primary care doctor. If this becomes persistent you can attempt to follow up with an ENT office. You may need a referral. [email or web address] [address], [place] [address] Scripts Meclizine Hcl (MECLIZINE HCL) 25 Mg Tablet 1 TAB PO Q6HRS for dizziness, #20 TAB Prov: BRIANNA VILLEGAS MD 09/22/20 BRIANNA VILLEGAS MD Sep 22, 2020 11:35
[2020-09-22] MEDS ORDERED: MECL-75 PO (15:31)
--- NOTE | 2020-09-23 02:13 | EKG ---
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
--- NOTE | 2020-10-04 11:09 | EKG ---
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
== END 2020-09-22 11:50 | disposition home or self-care (01) ==
LOC: ER 08:55
DX: H81.11 Benign paroxysmal vertigo, right ear (principal); K21.9 Gastro-esophageal reflux disease without esophagitis; E78.00 Pure hypercholesterolemia, unspecified; J45.909 Unspecified asthma, uncomplicated; I10 Essential (primary) hypertension; F17.200 Nicotine dependence, unspecified, uncomplicated; Z88.0 Allergy status to penicillin
CPT/HCPCS: 93005; 99283; J8597

== ENCOUNTER → 2021-02-26 | Outpatient (CLI) | payer OTHER ==
[~2021-02-26] MED LIST changes: +MECL-75 PO
--- NOTE | 2021-02-27 08:44 | RAD ---
XR HAND_RIGHT 3 VIEWS History: Right hand pain Comparison: None. Technique: 3 views of the right hand. Findings: Osseous mineralization is normal. No acute fracture or dislocaton. Mild degenerative changes at the m etacarpophalangeal and interphalangeal joints with small osteophytes. No aggressive osseous erosive p rocess. Soft tissues are unremarkable. Impression: 1. Degenerative changes of the right hand without acute osseous abnormality. Electronically signed by: Jose Cheung MD (02/27/2021 8:41 AM) [id number]
== END ==
LOC: RAD 09:58
PROVIDERS: ATTEND Family Medicine
DX: M19.041 Primary osteoarthritis, right hand (principal); M25.741 Osteophyte, right hand
CPT/HCPCS: 73130

== ENCOUNTER 2021-05-24 10:11 | Emergency (ER) | payer OTHER ==
[~2021-05-24] VITALS: Ht 175.3 cm; Wt 102.8 kg
[2021-05-24] MEDS ORDERED: FAMOTIDINE 20 MG/2 ML VIAL IVP ONE (10:45)
[2021-05-24] MEDS ORDERED: MORPHINE SULFATE 2 MG/ML INJ. IVP ONE (10:45)
[2021-05-24] MEDS ORDERED: KETOROLAC 30 MG/ML VIAL. IVP ONE (10:45)
[2021-05-24 10:55] LABS: BASO % 1 % (0-3); EOS # 0.3 x10^3/uL (0.0-0.7); EOS % 5 % (0-3); HEMATOCRIT 39.7 % (39.0-53.0); HEMOGLOBIN 13.7 g/dL (13.0-17.5); LYMPH # 1.5 x10^3/uL (1.0-4.8); LYMPH % 28 % (24-48); MEAN CORPUSCULAR HEMOGLOBIN 29 pg (25-35); MEAN CORPUSCULAR HGB CONC 35 g/dL (31-37); MEAN CORPUSCULAR VOLUME 85 fL (79-100); MONO # 0.5 x10^3/uL (0.0-1.1); MONO % 9 % (0-9); NEUT # 3.2 x10^3/uL (1.8-7.7); NEUT % 58 % (31-73); PLATELET COUNT 269 x10^3/uL (140-400); RED BLOOD COUNT 4.66 x10^6/uL (4.30-5.70); RED CELL DISTRIBUTION WIDTH 13.6 % (11.5-14.5); WHITE BLOOD COUNT 5.5 x10^3/uL (4.0-11.0)
[2021-05-24 10:59] LABS: CALCIUM 9.1 mg/dL (8.5-10.1); CREATININE 1.5 mg/dL (0.7-1.3); GFR 59.9; POTASSIUM 3.8 mmol/L (3.5-5.1)
[2021-05-24 11:01] LABS: ALBUMIN 3.9 g/dL (3.4-5.0); ALBUMIN/GLOBULIN RATIO 1.1 (1.0-1.7); TOTAL BILIRUBIN 0.3 mg/dL (0.2-1.0); TOTAL PROTEIN 7.5 g/dL (6.4-8.2)
[2021-05-24] MEDS ORDERED: CONTRAST GIVEN. MC PRN (11:15)
[2021-05-24] MEDS ORDERED: IOHEXOL 300 MG/ML 100ML VIAL. IV ONE (11:15)
--- NOTE | 2021-05-24 11:44 | RAD ---
CT ABDOMEN+PELVIS W History: Abdominal pain, distention. Comparison: CT abdomen and pelvis 08/17/2019 Technique: CT abdomen and pelvis with intravenous contrast. Findings: The lung bases are clear. The liver, gallbladder, pancreas, spleen, adrenal glands, and kidneys are u nremarkable. The stomach and small bowel are unremarkable. Normal appendix. There is moderate sigmoid diverticulos is. No pericolonic inflammatory changes to suggest diverticulitis. The bladder and prostate are unremarkable. No free air or fluid. No abdominal pelvic adenopathy. Vasc ular structures are unremarkable. Fat contained within the bilateral inguinal canals. Degenerative ch anges of the lumbar spine with lower lumbar predominant disc and facet disease. Impression: 1. No acute findings in the abdomen and pelvis. 2. Sigmoid diverticulosis without evidence of diverticulitis. ------ Exposure: One or more of the following individualized dose reduction techniques were utilized for thi s examination: 1. Automated exposure control 2. Adjustment of the mA and/or kV according to patient size 3. Use of iterative reconstruction technique. Electronically signed by: Jose Cheung MD (05/24/2021 11:41 AM) [id number]
--- NOTE | 2021-05-24 11:59 | EKG ---
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
[2021-05-24] MEDS ORDERED: MULTIVIT INFUSN,ADULT 4,VIT K 10 ML, THIAMINE INJ 100 MG, FOLIC ACID INJ 1 MG in IV NOR... IV ONE (12:00)
--- NOTE | 2021-05-24 14:04 | PHYS DOC ---
Past Medical History Past Medical History: Asthma, GERD, High Cholesterol, Hypertension Additional Past Medical Histor: "MILD NH" Past Surgical History: Other Additional Past Surgical Histo: LIPOMA REMOVAL Smoking Status: Current Every Day Smoker Additional Information: 0.25 PPD Alcohol Use: Occasionally Drug Use: None General Adult EDM: Chief Complaint: ABDOMINAL PAIN HPI: HPI: Patient is a 50 year old male presents to the ER with epigastric pain. Patient has a history of gastritis and acid reflux. Patient states that pain started after he ate he had breakfast sausages this morning. States he usually lives healthy diet due to the fact that it he has multiple exacerbations of gastritis. Patient states that he took [id number] antacids with no relief. Patient denies any nausea or vomiting. Review of Systems: Review of Systems: Constitutional: Denies fever or chills. [] Eyes: Denies change in visual acuity. [] HENT: Denies nasal congestion or sore throat. [] Respiratory: Denies cough or shortness of breath. [] Cardiovascular: Denies chest pain or edema. [] GI: Epigastric pain. Denies , nausea, vomiting, bloody stools or diarrhea. [] : Denies dysuria. [] Musculoskeletal: Denies back pain or joint pain. [] Integument: Denies rash. [] Neurologic: Denies headache, focal weakness or sensory changes. [] Endocrine: Denies polyuria or polydipsia. [] Lymphatic: Denies swollen glands. [] Psychiatric: Denies depression or anxiety. [] Heart Score: C/O Chest Pain: No Risk Factors: Risk Factors: DM, Current or recent (<one month) smoker, HTN, HLP, family history of CAD, obesity. Risk Scores: Score 0 - 3: 2.5% MACE over next 6 weeks - Discharge Home Score 4 - 6: 20.3% MACE over next 6 weeks - Admit for Clinical Observation Score 7 - 10: 72.7% MACE over next 6 weeks - Early Invasive Strategies Current Medications: Current Medications Medications (Trade) Dose Ordered Sig/Luz Start Time Stop Time Status Last Admin Dose Admin Famotidine (Pepcid Vial) 20 mg 1X ONCE 05/24/21 10:45 05/24/21 10:46 DC 05/24/21 10:45 20 MG Info (CONTRAST GIVEN -- Rx MONITORING) 1 each PRN DAILY PRN 05/24/21 11:15 05/26/21 11:14 Iohexol (Omnipaque 300 Mg/ml) 75 ml 1X ONCE 05/24/21 11:15 05/24/21 11:16 DC 05/24/21 11:15 75 ML Ketorolac Tromethamine (Toradol 30mg Vial) 15 mg 1X ONCE 05/24/21 10:45 05/24/21 10:46 DC 05/24/21 10:45 15 MG Morphine Sulfate (Morphine Sulfate) 2 mg 1X ONCE 05/24/21 10:45 05/24/21 10:46 DC 05/24/21 10:46 2 MG Multivitamins 10 ml/Thiamine HCl 100 mg/Folic Acid 1 mg/Sodium Chloride 1,011.2 ml @ 1,000.088 mls/hr 1X ONCE 05/24/21 12:00 05/24/21 13:00 Cancel Allergies: Allergies: Allergies Coded Allergies Type Severity Reaction Last Updated Verified Penicillins Allergy Intermediate rash 09/24/19 Yes Physical Exam: PE: Constitutional: Well developed, well nourished, no acute distress, non-toxic appearance. [] HENT: Normocephalic, atraumatic, bilateral external ears normal, oropharynx moist, no oral exudates, nose normal. [] Eyes: PERRLA, EOMI, conjunctiva normal, no discharge. [] Neck: Normal range of motion, no tenderness, supple, no stridor. [] Cardiovascular:Heart rate regular rhythm, no murmur [] Lungs & Thorax: Bilateral breath sounds clear to auscultation [] Abdomen: Bowel sounds normal, soft, mild epigastric tenderness, abdominal distention no ascites present Skin: Warm, dry, no erythema, no rash. [] Back: No tenderness, no CVA tenderness. [] Extremities: No tenderness, no cyanosis, no clubbing, ROM intact, no edema. [] Neurologic: Alert and oriented X 3, normal motor function, normal sensory function, no focal deficits noted. [] Psychologic: Affect normal, judgement normal, mood normal. [] Current Patient Data: Labs: Laboratory Tests Test 05/24/21 10:25 White Blood Count 5.5 x10^3/uL (4.0-11.0) Red Blood Count 4.66 x10^6/uL (4.30-5.70) Hemoglobin 13.7 g/dL (13.0-17.5) Hematocrit 39.7 % (39.0-53.0) Mean Corpuscular Volume 85 fL (79-100) Mean Corpuscular Hemoglobin 29 pg (25-35) Mean Corpuscular Hemoglobin Concent 35 g/dL (31-37) Red Cell Distribution Width 13.6 % (11.5-14.5) Platelet Count 269 x10^3/uL (140-400) Neutrophils (%) (Auto) 58 % (31-73) Lymphocytes (%) (Auto) 28 % (24-48) Monocytes (%) (Auto) 9 % (0-9) Eosinophils (%) (Auto) 5 % (0-3) H Basophils (%) (Auto) 1 % (0-3) Neutrophils # (Auto) 3.2 x10^3/uL (1.8-7.7) Lymphocytes # (Auto) 1.5 x10^3/uL (1.0-4.8) Monocytes # (Auto) 0.5 x10^3/uL (0.0-1.1) Eosinophils # (Auto) 0.3 x10^3/uL (0.0-0.7) Basophils # (Auto) 0.0 x10^3/uL (0.0-0.2) Sodium Level 139 mmol/L (136-145) Potassium Level 3.8 mmol/L (3.5-5.1) Chloride Level 102 mmol/L (98-107) Carbon Dioxide Level 28 mmol/L (21-32) Anion Gap 9 (6-14) Blood Urea Nitrogen 14 mg/dL (8-26) Creatinine 1.5 mg/dL (0.7-1.3) H Estimated GFR (Cockcroft-Gault) 59.9 BUN/Creatinine Ratio 9 (6-20) Glucose Level 129 mg/dL (70-99) H Calcium Level 9.1 mg/dL (8.5-10.1) Total Bilirubin 0.3 mg/dL (0.2-1.0) Aspartate Amino Transferase (AST) 19 U/L (15-37) Alanine Aminotransferase (ALT) 36 U/L (16-63) Alkaline Phosphatase 71 U/L (46-116) Total Protein 7.5 g/dL (6.4-8.2) Albumin 3.9 g/dL (3.4-5.0) Albumin/Globulin Ratio 1.1 (1.0-1.7) Lipase 69 U/L (73-393) L Laboratory Tests 05/24/21 10:25 Laboratory Tests 05/24/21 10:25 Vital Signs: Vital Signs Date Time Temp Pulse Resp B/P (MAP) Pulse Ox O2 Delivery O2 Flow Rate FiO2 05/24/21 11:51 66 133/77 (95) 97 Room Air 05/24/21 10:46 21 05/24/21 10:13 97.4 97.4 EKG: EKG: [] Patient has a normal sinus EKG with a heart rate of 75 and a QTC of 447 and a leftward axis otherwise normal EKG Radiology/Procedures: Radiology/Procedures: []Impression: 1. No acute findings in the abdomen and pelvis. 2. Sigmoid diverticulosis without evidence of diverticulitis. Course & Med Decision Making: Course & Med Decision Making Pertinent Labs and Imaging studies reviewed. (See chart for details) [] Patient was reevaluated and states that he feels much better. CT scan and blood work were reviewed. Patient does have an appointment with his GI doctor and is scheduled for endoscopy at the end of the month. Return precautions were discussed. Diet modifications were also discussed and consult Francine Disclaimer: Francine Disclaimer: This electronic medical record was generated, in whole or in part, using a voice recognition dictation system. Departure Departure Referrals: DIANA ARREGUIN MD (PCP) NATASHA BUNDY DO May 24, 2021 14:04
[2021-05-24] MEDS ORDERED: TRAM50TA PO (14:07)
[2021-05-24 14:14] VITALS: BP 142/74
== END 2021-05-24 14:19 | disposition home or self-care (01) ==
LOC: ER 10:11
DX: K57.30 Diverticulosis of large intestine without perforation or abscess without bleeding (principal); K21.9 Gastro-esophageal reflux disease without esophagitis; E78.00 Pure hypercholesterolemia, unspecified; J45.909 Unspecified asthma, uncomplicated; I10 Essential (primary) hypertension; I25.2 Old myocardial infarction; F17.200 Nicotine dependence, unspecified, uncomplicated; Z88.0 Allergy status to penicillin
CPT/HCPCS: 36415; 74177; 80053; 83690; 85025; 93005; 96374; 96375; 99285; J1885; J2270; J3490; Q9967

== ENCOUNTER → 2021-06-13 | Day surgery (SDC) | payer OTHER ==
[~2021-06-13] VITALS: Ht 175.3 cm; Wt 100.0 kg
[~2021-06-13] MED LIST changes: +IV RINGERS,LACTATED 1000ML 1,000 ML IV SCH; +PROPOFOL 10 MG/ML (20ML) VIAL. IV ONE; +TRAM50TA PO
[2021-06-13 07:12] VITALS: BP 162/93
[2021-06-13 09:15] VITALS: BP 134/84
== END | disposition home or self-care (01) ==
LOC: ENDOS 06:32
PROVIDERS: ATTEND Internal Medicine Gastroenterology
DX: Z12.11 Encounter for screening for malignant neoplasm of colon (principal); K64.0 First degree hemorrhoids; R10.13 Epigastric pain; K29.50 Unspecified chronic gastritis without bleeding; K63.89 Other specified diseases of intestine; K31.89 Other diseases of stomach and duodenum; I10 Essential (primary) hypertension; E78.00 Pure hypercholesterolemia, unspecified; G47.30 Sleep apnea, unspecified
CPT/HCPCS: 43235; 45378; J2704